=== PATIENT | male | born 1970 | race Caucasian/White ===

== ENCOUNTER 2019-08-22 17:56 | Emergency (ER) | payer SELFPAY ==
[~2019-08-22] VITALS: Ht 172.7 cm; Wt 75.0 kg
--- NOTE | 2019-08-22 18:43 | PHYS DOC ---
Past Medical History Past Medical History: No Pertinent History Past Surgical History: No Surgical History Smoking Status: Current Every Day Smoker Alcohol Use: Heavy Drug Use: None Adult General Chief Complaint Chief Complaint: BLOODY STOOL HPI HPI Patient is a 48 year old male who presents with rectal bleeding that has been ongoing for the last 6 days. The patient also states he has been short of breath for the last week and half. The patient admits to being an alcoholic. He states that he has drank alcohol today and he is a daily drinker. He reports associated symptom includes abdominal pain. Rates his pain as 5 out of 10 in severity and sharp. Review of Systems Review of Systems Constitutional: Denies fever or chills [] Eyes: Denies change in visual acuity, redness, or eye pain [] HENT: Denies nasal congestion or sore throat [] Respiratory: Reports shortness of breath [] Cardiovascular: No additional information not addressed in HPI [] GI: Reports abdominal pain, bloody stools, Denies nausea, vomiting, and diarrhea [] : Denies dysuria or hematuria [] Musculoskeletal: Denies back pain or joint pain [] Integument: Denies rash or skin lesions [] Neurologic: Denies headache, focal weakness or sensory changes [] Endocrine: Denies polyuria or polydipsia [] Complete systems were reviewed and found to be within normal limits, except as documented in this note. Current Medications Current Medications Current Medications Medications (Trade) Dose Ordered Sig/Aristides Start Time Stop Time Status Last Admin Dose Admin Fentanyl Citrate (Fentanyl 2ml Vial) 50 mcg 1X ONCE 08/22/19 18:45 08/22/19 18:46 DC Iohexol (Omnipaque 300 Mg/ml) 75 ml 1X ONCE 08/22/19 19:45 08/22/19 19:47 DC Ondansetron HCl (Zofran) 4 mg 1X ONCE 08/22/19 18:45 08/22/19 18:46 DC 08/22/19 19:09 4 MG Sodium Chloride 1,000 ml @ 1,000 mls/hr 1X ONCE 08/22/19 18:45 08/22/19 19:44 DC 08/22/19 19:10 1,000 MLS/HR Allergies Allergies Allergies Coded Allergies Type Severity Reaction Last Updated Verified No Known Drug Allergies 07/19/15 No Physical Exam Physical Exam Constitutional: Well developed, well nourished, no acute distress, non-toxic appearance. [] HENT: Normocephalic, atraumatic, bilateral external ears normal, oropharynx moist, no oral exudates, nose normal. [] Eyes: PERRLA, EOMI, conjunctiva normal, no discharge. [] Neck: Normal range of motion, no tenderness, supple, no stridor. [] Cardiovascular:Heart rate regular rhythm, no murmur [] Lungs & Thorax: Bilateral breath sounds clear to auscultation [] Abdomen: Bowel sounds normal, soft, diffuse abdominal tenderness, no masses, no pulsatile masses. [] Neurologic: Alert and oriented X 3, normal motor function, normal sensory function, no focal deficits noted. [] Psychologic: Affect normal, judgement normal, mood normal. [] Rectal Exam: No blood noted on exam. Current Patient Data Vital Signs Vital Signs Date Time Temp Pulse Resp B/P (MAP) Pulse Ox O2 Delivery O2 Flow Rate FiO2 08/22/19 18:50 97.7 104 18 126/86 (99) 94 Room Air 97.7 Lab Values Laboratory Tests Test 08/22/19 18:40 08/22/19 19:50 White Blood Count 3.8 x10^3/uL (4.0-11.0) L Red Blood Count 4.81 x10^6/uL (4.30-5.70) Hemoglobin 16.2 g/dL (13.0-17.5) Hematocrit 45.3 % (39.0-53.0) Mean Corpuscular Volume 94 fL (79-100) Mean Corpuscular Hemoglobin 34 pg (25-35) Mean Corpuscular Hemoglobin Concent 36 g/dL (31-37) Red Cell Distribution Width 14.0 % (11.5-14.5) Platelet Count 130 x10^3/uL (140-400) L Neutrophils (%) (Auto) 41 % (31-73) Lymphocytes (%) (Auto) 38 % (24-48) Monocytes (%) (Auto) 20 % (0-9) H Eosinophils (%) (Auto) 1 % (0-3) Basophils (%) (Auto) 1 % (0-3) Neutrophils # (Auto) 1.5 x10^3/uL (1.8-7.7) L Lymphocytes # (Auto) 1.4 x10^3/uL (1.0-4.8) Monocytes # (Auto) 0.8 x10^3/uL (0.0-1.1) Eosinophils # (Auto) 0.0 x10^3/uL (0.0-0.7) Basophils # (Auto) 0.0 x10^3/uL (0.0-0.2) Segmented Neutrophils % 28 % (35-66) L Band Neutrophils % 5 % (0-9) Lymphocytes % 45 % (24-48) Monocytes % 18 % (0-10) H Eosinophils % 2 % (0-5) Basophils % 2 % (0-3) Platelet Estimate Adequate (ADEQUATE) Stool Occult Blood Positive (NEG) Sodium Level 139 mmol/L (136-145) Potassium Level 3.6 mmol/L (3.5-5.1) Chloride Level 101 mmol/L (98-107) Carbon Dioxide Level 26 mmol/L (21-32) Anion Gap 12 (6-14) Blood Urea Nitrogen 7 mg/dL (8-26) L Creatinine 0.7 mg/dL (0.7-1.3) Estimated GFR (Cockcroft-Gault) 121.4 BUN/Creatinine Ratio 10 (6-20) Glucose Level 135 mg/dL (70-99) H Calcium Level 8.6 mg/dL (8.5-10.1) Total Bilirubin 0.3 mg/dL (0.2-1.0) Aspartate Amino Transferase (AST) 94 U/L (15-37) H Alanine Aminotransferase (ALT) 57 U/L (16-63) Alkaline Phosphatase 85 U/L (46-116) Troponin I Quantitative < 0.017 ng/mL (0.000-0.055) Total Protein 8.4 g/dL (6.4-8.2) H Albumin 4.1 g/dL (3.4-5.0) Albumin/Globulin Ratio 1.0 (1.0-1.7) Lipase 409 U/L (73-393) H Ethyl Alcohol Level 436 mg/dL (0-10) *H Urine Opiates Screen Neg (NEG) Urine Methadone Screen Neg (NEG) Urine Barbiturates Neg (NEG) Urine Phencyclidine Screen Neg (NEG) Urine Amphetamine/Methamphetamine Neg (NEG) Urine Benzodiazepines Screen Neg (NEG) Urine Cocaine Screen Neg (NEG) Urine Cannabinoids Screen Neg (NEG) Urine Ethyl Alcohol Pos (NEG) Laboratory Tests 08/22/19 18:40 Laboratory Tests 08/22/19 18:40 EKG EKG [] Radiology/Procedures Radiology/Procedures [facility] [address] [place] [address] IMAGING REPORT Signed PATIENT: EDWIN MEEKS JACCOUNT: [id number] : 1970 LOCATION: ER AGE: 48 SEX: M EXAM STATUS: REG ER ORD. PHYSICIAN: RASHEED PAN APRN REASON: abdominal pain, rectal bleeding, OMNI 300, 75 ML IV PROCEDURE: CT ABD PELV W/ IV CONTRST ONLY CT abdomen and pelvis 08/22/2019. Reason for exam: Abdominal pain and rectal bleeding. CT images were performed through the abdomen and pelvis using an infusion of 75 mL Omnipaque 300. No oral contrast was given. Described CT radiation. FINDINGS: The lung bases are clear. The liver shows diffuse fatty infiltration. No focal lesion is seen. The spleen appears normal. Both kidneys enhance with contrast. There is a cyst posteriorly in the right kidney. No solid mass or obstruction is seen. The adrenal glands are not enlarged. The pancreas appears normal. No retroperitoneal or mesenteric adenopathy is seen. There is no apparent abdominal mass or clearcut inflammatory process. Evaluation of the GI tract is somewhat limited by lack of oral contrast and lack of distention. Images through the pelvis show no abnormality of the distal ureters or bladder. No pelvic or inguinal adenopathy is seen. There is no apparent pelvic mass or inflammatory process. A normal appendix is shown extending medially from the cecum. There is some diverticulosis of the sigmoid colon without clearcut diverticulitis. IMPRESSION: No identified acute abnormality. Electronically signed by: Indiana Pringle Jr., MD (08/22/2019 7:55 PM) [id number] DICTATED and SIGNED BY: IND[place]NA PRINGLE Jr, MD DATE: 08/22/19 1955 [][facility] [address] [place] [address] IMAGING REPORT Signed PATIENT: EDWIN MEEKSCOUNT: [id number] : 1970 LOCATION: ER AGE: 48 SEX: M EXAM STATUS: REG ER ORD. PHYSICIAN: RASHEED PAN APRN REASON: shortness of breath PROCEDURE: CHEST PA & LATERAL Chest PA and lateral 08/22/2019. Reason for exam: Shortness of breath. No infiltrate or effusion is seen. Heart size and pulmonary vascularity appear normal. IMPRESSION: No acute disease. Electronically signed by: Indiana Pringle Jr., MD (08/22/2019 7:56 PM) [id number] DICTATED and SIGNED BY: [place] PRINGLE Jr, MD DATE: 08/22/191955 Course & Med Decision Making Course & Med Decision Making Pertinent Labs and Imaging studies reviewed. (See chart for details) Will get labs, CT, and give supportive care. Labs are unremarkable for acute changes with exception of ETOH of 436, and positive fecal occult blood. Hemoglobin is stable. CT shows no acute changes. Patient has mother at bedside. Discussed with patient that he needs to quit drinking and will have follow up with GI. Shea Disclaimer Dragon Disclaimer This electronic medical record was generated, in whole or in part, using a voice recognition dictation system. Departure Departure Impression: Primary Impression: Alcohol abuse Additional Impression: Rectal bleeding Disposition: HOME, SELF-CARE Condition: STABLE Referrals: NO PCP (PCP) SEBASTIAN PARRISH MD Patient Instructions: Alcohol Intoxication Additional Instructions: Thank you for visiting [facility]. We appreciate you trusting us with your care. If any additional problems come up don't hesitate to return to visit us. Please follow up with your primary care provider so they can plan additional care if needed and know about the problem that you had. If symptoms worsen come back to the Emergency Department. Any concerning symptoms that start such as chest pain, shortness of air, weakness or numbness on one side of the body, running high fevers or any other concerning symptoms return to the ER. Please stop drinking and follow up with GI. Problem Qualifiers RASHEED PAN APRN Aug 22, 2019 18:42
[2019-08-22] MEDS ORDERED: ONDANSETRON PF 4 MG/2 ML VIAL. IV ONE (18:45)
[2019-08-22] MEDS ORDERED: IV NORMAL SALINE 1000ML BAG 1,000 ML IV ONE (18:45)
[2019-08-22] MEDS ORDERED: fentaNYL PF VIAL 100 MCG/2 ML VIAL IV ONE (18:45)
[2019-08-22 18:58] LABS: BASO % 1 % (0-3); EOS % 1 % (0-3); HEMATOCRIT 45.3 % (39.0-53.0); HEMOGLOBIN 16.2 g/dL (13.0-17.5); LYMPH # 1.4 x10^3/uL (1.0-4.8); LYMPH % 38 % (24-48); MEAN CORPUSCULAR HEMOGLOBIN 34 pg (25-35); MEAN CORPUSCULAR HGB CONC 36 g/dL (31-37); MEAN CORPUSCULAR VOLUME 94 fL (79-100); MONO # 0.8 x10^3/uL (0.0-1.1); MONO % 20 % (0-9); NEUT # 1.5 x10^3/uL (1.8-7.7); NEUT % 41 % (31-73); PLATELET COUNT 130 x10^3/uL (140-400); RED BLOOD COUNT 4.81 x10^6/uL (4.30-5.70); WHITE BLOOD COUNT 3.8 x10^3/uL (4.0-11.0)
[2019-08-22 19:03] LABS: FECAL OB PT POSITIVE (NEG)
[2019-08-22 19:06] LABS: CALCIUM 8.6 mg/dL (8.5-10.1); CREATININE 0.7 mg/dL (0.7-1.3); GFR 121.4; POTASSIUM 3.6 mmol/L (3.5-5.1)
[2019-08-22 19:11] LABS: ALBUMIN 4.1 g/dL (3.4-5.0); TOTAL BILIRUBIN 0.3 mg/dL (0.2-1.0); TOTAL PROTEIN 8.4 g/dL (6.4-8.2)
[2019-08-22 19:25] LABS: % BANDS 5 % (0-9); % BASOS 2 % (0-3); % EOS 2 % (0-5); % LYMPHS 45 % (24-48); % MONOS 18 % (0-10); % SEGS 28 % (35-66); PLT ESTIMATE ADEQUATE (ADEQUATE)
[2019-08-22] MEDS ORDERED: IOHEXOL 300 MG/ML 100ML VIAL. IV ONE (19:45)
--- NOTE | 2019-08-22 19:58 | RAD ---
CT abdomen and pelvis 08/22/2019. Reason for exam: Abdominal pain and rectal bleeding. CT images were performed through the abdomen and pelvis using an infusion of 75 mL Omnipaque 300. No oral contrast was given. Described CT radiation. FINDINGS: The lung bases are clear. The liver shows diffuse fatty infiltration. No focal lesion is seen. The spleen appears normal. Both kidneys enhance with contrast. There is a cyst posteriorly in the right kidney. No solid mass or obstruction is seen. The adrenal glands are not enlarged. The pancreas appears normal. No retroperitoneal or mesenteric adenopathy is seen. There is no apparent abdominal mass or clearcut inflammatory process. Evaluation of the GI tract is somewhat limited by lack of oral contrast and lack of distention. Images through the pelvis show no abnormality of the distal ureters or bladder. No pelvic or inguinal adenopathy is seen. There is no apparent pelvic mass or inflammatory process. A normal appendix is shown extending medially from the cecum. There is some diverticulosis of the sigmoid colon without clearcut diverticulitis. IMPRESSION: No identified acute abnormality. Electronically signed by: Jatin Pringle Jr., MD (08/22/2019 7:55 PM) [id number]
--- NOTE | 2019-08-22 19:59 | RAD ---
Chest PA and lateral 08/22/2019. Reason for exam: Shortness of breath. No infiltrate or effusion is seen. Heart size and pulmonary vascularity appear normal. IMPRESSION: No acute disease. Electronically signed by: Jatin Pringle Jr., MD (08/22/2019 7:56 PM) [id number]
--- NOTE | 2019-08-22 20:04 | EKG ---
[facility] [address] [place] [address] Test Date: 2019-08-22 Test Time: 19:17:07 Pat Name: EDWIN MEEKS Department: Room: Gender: M [employer]: : 1970 Requested By: RASHEED PAN Order Number: [id number] Reading MD: Measurements Intervals [place] Rate: 93 P: -50 SD: 154 QRS: 76 QRSD: 108 T: 43 QT: 362 QTc: 453 Interpretive Statements SINUS RHYTHM NO SPECIFIC ECG ABNORMALITIES RI6.01 No previous ECG available for comparison
[2019-08-22 20:07] LABS: AMPHETAMINE/METHAMPHETAMINE NEG (NEG); BARBITURATES NEG (NEG); BENZODIAZEPINES NEG (NEG); CANNABINOIDS NEG (NEG); COCAINE NEG (NEG); METHADONE NEG (NEG); OPIATES NEG (NEG); PHENCYCLIDINE NEG (NEG)
[2019-08-22 20:29] VITALS: BP 134/91
== END 2019-08-22 20:50 | disposition home or self-care (01) ==
LOC: ER 17:56
DX: K62.5 Hemorrhage of anus and rectum (principal); R06.02 Shortness of breath; F10.10 Alcohol abuse, uncomplicated; R10.9 Unspecified abdominal pain; F17.200 Nicotine dependence, unspecified, uncomplicated
CPT/HCPCS: 36415; 71046; 74177; 80053; 80307; 82274; 83690; 84484; 85007; 85025; 93005; 96374; 99285; G0480; J2405; J7030; Q9967

== ENCOUNTER 2021-10-20 20:22 | Emergency (ER) | payer OTHER ==
[~2021-10-20] VITALS: Ht 180.3 cm; Wt 88.4 kg
--- NOTE | 2021-10-20 20:57 | PHYS DOC ---
Past Medical History Past Medical History: Alcoholism Past Surgical History: No Surgical History Smoking Status: Current Every Day Smoker Alcohol Use: Heavy Drug Use: None General Adult EDM: Chief Complaint: ABDOMINAL PAIN HPI: HPI: Patient is a 51 year old male who presented to ER for evaluation of nausea , vomiting, diarrhea and abdominal pain for 1 week. Patient denies any cough or fever. Patient had a telemedicine consult with his doctor who recommended him to come to the urgent care for evaluation. Patient went to urgent car but they cannot do anything for him so they sent him here for evaluation. Patient denies any blood in his stool. Patient denies any chest pain, no trouble breathing. Patient denies any recent antibiotic usage. Patient describes abdominal pain as cramping in nature. Review of Systems: Review of Systems: Constitutional: Denies fever or chills. [] Eyes: Denies change in visual acuity. [] HENT: Denies nasal congestion or sore throat. [] Respiratory: Denies cough or shortness of breath. [] Cardiovascular: Denies chest pain or edema. [] GI: Positive for abdominal pain with nausea vomiting diarrhea : Denies dysuria. [] Musculoskeletal: Denies back pain or joint pain. [] Integument: Denies rash. [] Neurologic: Denies headache, focal weakness or sensory changes. [] Endocrine: Denies polyuria or polydipsia. [] Lymphatic: Denies swollen glands. [] Psychiatric: Denies depression or anxiety. [] Heart Score: C/O Chest Pain: N/A Risk Factors: Risk Factors: DM, Current or recent (<one month) smoker, HTN, HLP, family history of CAD, obesity. Risk Scores: Score 0 - 3: 2.5% MACE over next 6 weeks - Discharge Home Score 4 - 6: 20.3% MACE over next 6 weeks - Admit for Clinical Observation Score 7 - 10: 72.7% MACE over next 6 weeks - Early Invasive Strategies Current Medications: Current Medications Medications (Trade) Dose Ordered Sig/Aristides Start Time Stop Time Status Last Admin Dose Admin Ondansetron HCl (Zofran) 4 mg 1X ONCE 10/20/21 21:00 10/20/21 21:01 Sodium Chloride 1,000 ml @ 1,000 mls/hr 1X ONCE 10/20/21 21:00 10/20/21 21:59 Allergies: Allergies: Allergies Coded Allergies Type Severity Reaction Last Updated Verified No Known Drug Allergies 07/19/15 No Physical Exam: PE: Constitutional: Well developed, well nourished, no acute distress, non-toxic appearance. [] HENT: Normocephalic, atraumatic, bilateral external ears normal, oropharynx moist, no oral exudates, nose normal. [] Eyes: PERRLA, EOMI, conjunctiva normal, no discharge. [] Neck: Normal range of motion, no tenderness, supple, no stridor. [] Cardiovascular:Heart rate regular rhythm, no murmur [] Lungs & Thorax: Bilateral breath sounds clear to auscultation [] Abdomen: Bowel sounds normal, soft, no tenderness, no masses, no pulsatile masses. [] Skin: Warm, dry, no erythema, no rash. [] Back: No tenderness, no CVA tenderness. [] Extremities: No tenderness, no cyanosis, no clubbing, ROM intact, no edema. [] Neurologic: Alert and oriented X 3, normal motor function, normal sensory function, no focal deficits noted. [] Psychologic: Affect normal, judgement normal, mood normal. [] Current Patient Data: Labs: Laboratory Tests Test 10/20/21 20:50 White Blood Count 3.6 x10^3/uL Red Blood Count 4.70 x10^6/uL Hemoglobin 13.8 g/dL Hematocrit 39.0 % Mean Corpuscular Volume 83 fL Mean Corpuscular Hemoglobin 29 pg Mean Corpuscular Hemoglobin Concent 35 g/dL Red Cell Distribution Width 12.8 % Platelet Count 131 x10^3/uL Neutrophils (%) (Auto) 39 % Lymphocytes (%) (Auto) 40 % Monocytes (%) (Auto) 17 % Eosinophils (%) (Auto) 3 % Basophils (%) (Auto) 1 % Neutrophils # (Auto) 1.4 x10^3/uL Lymphocytes # (Auto) 1.5 x10^3/uL Monocytes # (Auto) 0.6 x10^3/uL Eosinophils # (Auto) 0.1 x10^3/uL Basophils # (Auto) 0.0 x10^3/uL Sodium Level 138 mmol/L Potassium Level 3.6 mmol/L Chloride Level 101 mmol/L Carbon Dioxide Level 28 mmol/L Anion Gap 9 Blood Urea Nitrogen 16 mg/dL Creatinine 1.3 mg/dL Estimated GFR (Cockcroft-Gault) 58.7 BUN/Creatinine Ratio 12 Glucose Level 96 mg/dL Calcium Level 8.5 mg/dL Total Bilirubin 0.3 mg/dL Aspartate Amino Transf (AST/SGOT) 26 U/L Alanine Aminotransferase (ALT/SGPT) 29 U/L Alkaline Phosphatase 97 U/L Troponin I High Sensitivity 4 ng/L Total Protein 7.3 g/dL Albumin 3.3 g/dL Albumin/Globulin Ratio 0.8 Lipase 239 U/L Ethyl Alcohol Level < 10 mg/dL Current Medications Medications (Trade) Dose Ordered Sig/Aristides Route PRN Reason Start Time Stop Time Status Last Admin Dose Admin Sodium Chloride 1,000 ml @ 1,000 mls/hr 1X ONCE IV 10/20/21 21:00 10/20/21 21:59 DC 10/20/21 20:56 Ondansetron HCl (Zofran) 4 mg 1X ONCE IVP 10/20/21 21:00 10/20/21 21:01 DC 10/20/21 20:59 Iohexol (Omnipaque 300 Mg/ml) 75 ml 1X ONCE IV 10/20/21 22:00 10/20/21 22:03 DC 10/20/21 22:18 Info (CONTRAST GIVEN -- Rx MONITORING) 1 each PRN DAILY PRN MC SEE COMMENTS 10/20/21 22:15 10/22/21 22:14 Sodium Chloride 1,000 ml @ 1,000 mls/hr 1X ONCE IV 10/20/21 23:30 10/21/21 00:29 10/20/21 23:45 Ketorolac Tromethamine (Toradol 30mg Vial) 30 mg 1X ONCE IVP 10/20/21 23:30 10/20/21 23:31 DC 10/20/21 23:44 Metronidazole 100 ml @ 100 mls/hr 1X ONCE IV 10/20/21 23:45 10/21/21 00:44 10/20/21 23:44 Amoxicillin/ Clavulanate Potassium (Augmentin 875/ 125mg) 1 tab 1X ONCE PO 10/20/21 23:45 10/20/21 23:46 DC 10/20/21 23:44 Vital Signs: Vital Signs Date Time Temp Pulse Resp B/P (MAP) Pulse Ox O2 Delivery O2 Flow Rate FiO2 10/20/21 20:30 98.2 84 18 131/93 (106) 98 Room Air 98.2 EKG: EKG: [] Radiology/Procedures: Radiology/Procedures: [][facility] [address] [place] [address] IMAGING REPORT Signed PATIENT: EDWIN MEEKS JACCOUNT: [id number] : 1970 LOCATION: ER AGE: 51 SEX: M EXAM STATUS: REG ER ORD. PHYSICIAN: KIMMIE HARRIS DO REASON: lower abdominal pain PROCEDURE: CT ABD PELV W/ IV CONTRST ONLY INDICATION: Reason: lower abdominal pain / Spl. Instructions: omni 300 75ml [phone] / History: COMPARISON: August 22, 2019 TECHNIQUE: Axial CT images were obtained through the abdomen and pelvis with intravenous contrast. One or more of the following individualized dose reduction techniques were utilized for this examination: 1. Automated exposure control; 2. Adjustment of the mA and/or kV according to patient size; 3. Use of iterative reconstruction technique. FINDINGS: Vascular: Scattered atherosclerotic disease. Hepatobiliary: Mildly nodular contour. Contracted gallbladder. There are some collateral vessels in the upper abdomen. Prominent lymph node abutting the liver and pancreas measuring up to 18 mm short axis. Pancreas: No peripancreatic edema. Spleen: Calcified granulomas. Spleen prominent in size. Renal/Bladder: Urinary bladder has minimal urine within it at time of exam. No hydronephrosis. Low-density right renal lesion measuring up to about 23 mm. Gastrointestinal: Haziness in the fat adjacent to the distal colon. Mild colonic diverticulosis. There is a couple of mildly prominent loops of small bowel without high-grade transition point to suggest obstruction. The appendix may be partially seen but portion not well-visualized secondary to unopacified loops of bowel in the area. No significant inflammatory changes at the area. Degenerative changes of the spine. IMPRESSION: * There is some mild haziness in the fat adjacent to a portion of the colon. Would correlate with symptoms since causes such as mild colitis or diverticulitis could have this appearance. * Nodular liver contour. Would correlate with history of liver disease. There is also some collateral vessels seen in the mesentery. * There are some enlarged lymph nodes in the upper abdomen. Could be reactive in nature but a follow-up CT could be obtained in a few months to ensure no growth. * Right renal cystic lesion. Electronically signed by: Ivan Potter MD (10/20/2021 11:15 PM) [id number] DICTATED and SIGNED BY: IVAN POTTER MD DATE: 10/20/212305 Course & Med Decision Making: Course & Med Decision Making Pertinent Labs and Imaging studies reviewed. (See chart for details) Patient is a 51-year-old male who presented to ER due to nausea vomiting diarrhea and abdominal pain. CT scan abdomen pelvic show evidence of colitis. Patient be discharged home with prescription for Augmentin and Flagyl Dragon Disclaimer: Dragon Disclaimer: This electronic medical record was generated, in whole or in part, using a voice recognition dictation system. Departure Departure Impression: Primary Impression: Gastroenteritis Additional Impression: Colitis Disposition: 01 HOME / SELF CARE / HOMELESS Condition: STABLE Referrals: NO PCP (PCP) Follow up with your doctor as needed Patient Instructions: Colitis Additional Instructions: Thank you for visiting our Emergency Department. We appreciate you trusting us with your care. If any additional problems come up don't hesitate to return to visit us. Please follow up with your primary care provider so they can plan additional care if needed and know about the problem that you had. If symptoms worsen come back to the Emergency Department. Any concerning symptoms that start such as chest pain, shortness of air, weakness or numbness on one side of the body, running high fevers or any other concerning symptoms return to the ER. Scripts Metronidazole (METRONIDAZOLE) 500 Mg Tablet 1 TAB PO TID for 10 Days, #30 TAB 0 Refills Prov: KIMMIE HARRIS DO 10/21/21 Amoxicillin/Potassium Clav (AUGMENTIN 875-125 TABLET) 1 Each Tablet 1 TAB PO BID for 10 Days, #20 TAB 0 Refills Prov: KIMMIE HARRIS DO 10/21/21 KIMMIE HARRIS DO Oct 20, 2021 20:57
[2021-10-20] MEDS ORDERED: IV NORMAL SALINE 1000ML BAG 1,000 ML IV ONE ×2 (21:00→23:30)
[2021-10-20] MEDS ORDERED: ONDANSETRON PF 4 MG/2 ML VIAL. IVP ONE (21:00)
[2021-10-20 21:11] LABS: BASO % 1 % (0-3); EOS # 0.1 x10^3/uL (0.0-0.7); EOS % 3 % (0-3); HEMOGLOBIN 13.8 g/dL (13.0-17.5); LYMPH # 1.5 x10^3/uL (1.0-4.8); LYMPH % 40 % (24-48); MEAN CORPUSCULAR HEMOGLOBIN 29 pg (25-35); MEAN CORPUSCULAR HGB CONC 35 g/dL (31-37); MEAN CORPUSCULAR VOLUME 83 fL (79-100); MONO # 0.6 x10^3/uL (0.0-1.1); MONO % 17 % (0-9); NEUT # 1.4 x10^3/uL (1.8-7.7); NEUT % 39 % (31-73); PLATELET COUNT 131 x10^3/uL (140-400); RED CELL DISTRIBUTION WIDTH 12.8 % (11.5-14.5); WHITE BLOOD COUNT 3.6 x10^3/uL (4.0-11.0)
[2021-10-20 21:20] LABS: CALCIUM 8.5 mg/dL (8.5-10.1); CREATININE 1.3 mg/dL (0.7-1.3); GFR 58.7; POTASSIUM 3.6 mmol/L (3.5-5.1)
[2021-10-20 21:26] LABS: ALBUMIN 3.3 g/dL (3.4-5.0); ALBUMIN/GLOBULIN RATIO 0.8 (1.0-1.7); TOTAL BILIRUBIN 0.3 mg/dL (0.2-1.0); TOTAL PROTEIN 7.3 g/dL (6.4-8.2)
[2021-10-20] MEDS ORDERED: IOHEXOL 300 MG/ML 100ML VIAL. IV ONE (22:00)
[2021-10-20] MEDS ORDERED: CONTRAST GIVEN. MC PRN (22:15)
--- NOTE | 2021-10-20 23:18 | RAD ---
INDICATION: Reason: lower abdominal pain / Spl. Instructions: omni 300 75ml [phone] / History: COMPARISON: August 22, 2019 TECHNIQUE: Axial CT images were obtained through the abdomen and pelvis with intravenous contrast. One or more of the following individualized dose reduction techniques were utilized for this examinat ion: 1. Automated exposure control; 2. Adjustment of the mA and/or kV according to patient size; 3 . Use of iterative reconstruction technique. FINDINGS: Vascular: Scattered atherosclerotic disease. Hepatobiliary: Mildly nodular contour. Contracted gallbladder. There are some collateral vessels in t he upper abdomen. Prominent lymph node abutting the liver and pancreas measuring up to [address] ax is. Pancreas: No peripancreatic edema. Spleen: Calcified granulomas. Spleen prominent in size. Renal/Bladder: Urinary bladder has minimal urine within it at time of exam. No hydronephrosis. Low-de nsity right renal lesion measuring up to about 23 mm. Gastrointestinal: Haziness in the fat adjacent to the distal colon. Mild colonic diverticulosis. Ther e is a couple of mildly prominent loops of small bowel without high-grade transition point to suggest obstruction. The appendix may be partially seen but portion not well-visualized secondary to unopacified loops of bowel in the area. No significant inflammatory changes at the area. Degenerative changes of the spine. IMPRESSION: * There is some mild haziness in the fat adjacent to a portion of the colon. Would correlate with s ymptoms since causes such as mild colitis or diverticulitis could have this appearance. * Nodular liver contour. Would correlate with history of liver disease. There is also some collatera l vessels seen in the mesentery. * There are some enlarged lymph nodes in the upper abdomen. Could be reactive in nature but a follow -up CT could be obtained in a few months to ensure no growth. * Right renal cystic lesion. Electronically signed by: Gray Potter MD (10/20/2021 11:15 PM) [id number]
[2021-10-20] MEDS ORDERED: KETOROLAC 30 MG/ML VIAL. IVP ONE (23:30)
[2021-10-20] MEDS ORDERED: AMOXICILLIN/K CLAV 875/125MG TABLET. PO ONE (23:45)
[2021-10-21] MEDS ORDERED: METR-34 PO (00:31)
[2021-10-21] MEDS ORDERED: AMOX1TAB61 PO (00:31)
[2021-10-21 01:11] VITALS: BP 147/94
[2021-10-21 01:11] LABS: BACTERIA,URINE 0 /HPF (0-FEW); RBC,URINE 0 /HPF (0-2); WBC,URINE 0 /HPF (0-4)
--- NOTE | 2021-10-22 06:02 | EKG ---
[facility] [address] [place] [address] Test Date: 2021-10-20 Test Time: 21:08:00 Pat Name: EDWIN MEEKS Department: Room: Gender: M Medical Consultant: : 1970 Requested By: KIMMIE HARRIS Order Number: [id number] Reading MD: Nikita Wynn MD Measurements Intervals [place] Rate: 82 P: 2 MI: 156 QRS: 54 QRSD: 104 T: 40 QT: 378 QTc: 445 Interpretive Statements SINUS RHYTHM Electronically Signed On 10-29-2021 9:53:41 CDT by Nikita Wynn MD
== END 2021-10-21 01:36 | disposition home or self-care (01) ==
LOC: ER 20:22
DX: K52.9 Noninfective gastroenteritis and colitis, unspecified (principal); R11.2 Nausea with vomiting, unspecified; F17.200 Nicotine dependence, unspecified, uncomplicated
CPT/HCPCS: 36415; 74177; 80053; 81001; 83690; 84484; 85025; 93005; 96361; 96365; 96375; 99285; G0480; J1885; J2405; J3490; J7030; Q9967